=== PATIENT | male | born 1935 | race Caucasian/White ===

== ENCOUNTER 2016-12-23 21:20 | Emergency (ER) | payer OTHER ==
[~2016-12-23] VITALS: Ht 167.6 cm; Wt 83.2 kg
[~2016-12-23 21:20] MED LIST: ALBUTEROL1.25 MG/3 IH; ANTIVERT25 MG PO; ASPIRIN81 M2 PO; ATIVAN1 MG PO; AZITHROMYCIN250 MG1 PO; AZITHROMYCIN500 M1 PO; BENTYL20 MG PO; FINASTERIDE5 MG PO; GABAPENTIN300 MG PO; GLIPIZIDE10 MG PO; GLUCOTROL10 MG PO; GLUCOTROL5 MG PO; JANUMET 50/11 TABLET PO; JANUVIA25 M1 PO; KLOR-CON M1010 MEQ PO; LASIX20 MG PO; LEVO-T100 MCG PO; LIPITOR10 MG PO; LIPITOR20 MG PO; LISINOPRIL40 MG PO; METOPROLOL PO; METOPROLOL TART50 MG PO; MOTRIN800 MG PO; NEXIUM40 MG PO; NORVASC5 MG PO; PERCOCET 10/1 TABLET PO; PERCOCET 5/31 TABLET PO; PREDNISONE10 MG PO; PREDNISONE50 MG PO; SINGULAIR10 MG PO; SUPER B COMP1 TABLET PO; TESSALON PERLE100 MG PO; TRADJENTA5 MG PO; VALIUM2 MG PO; VALSARTAN160 MG PO; VENTOLIN HFA18 GM IH; VITAMIN D-32000 UNI2 PO; VOLTAREN 1% GE100 GM TP
[2016-12-23 22:58] VITALS: BP 137/77
== END 2016-12-23 23:00 | disposition home or self-care (01) ==
LOC: EME 21:20
DX: S80.01XA Contusion of right knee, initial encounter (principal); M17.11 Unilateral primary osteoarthritis, right knee; W10.9XXA Fall (on) (from) unspecified stairs and steps, initial encounter; G89.29 Other chronic pain; E11.9 Type 2 diabetes mellitus without complications; J44.9 Chronic obstructive pulmonary disease, unspecified; E78.5 Hyperlipidemia, unspecified; I10 Essential (primary) hypertension; K21.9 Gastro-esophageal reflux disease without esophagitis; Z95.1 Presence of aortocoronary bypass graft; Z79.82 Long term (current) use of aspirin; Z79.84 Long term (current) use of oral hypoglycemic drugs; Z87.891 Personal history of nicotine dependence
CPT/HCPCS: 73564; 99281; 99283